=== PATIENT | male | born 1940 | race Caucasian/White ===

== ENCOUNTER 2019-06-03 18:58 | Inpatient (IN) | payer OTHER ==
[~2019-06-03] VITALS: Ht 185.4 cm; Wt 96.6 kg
[~2019-06-03 18:58] MED LIST: ALLER-EASE180 MG PO; BAYER CHEWABLE81 MG PO; CRESTOR10 MG PO; IBUPROFEN 600600 M1 PO; NORVASC5 MG PO; PRILOSEC 20 MG20 MG PO; TOPROL XL25 MG PO
[2019-06-03 18:59] VITALS: BP 148/67
[2019-06-03 20:15] LABS: ABSOLUTE NEUTROPHILS 5.4 thou/uL (1.4-8.2); BASOPHILS 0.7 % (0.0-2.0); EOSINOPHILS 2.2 % (0.0-3.0); HEMATOCRIT 42.7 % (42.0-52.0); HEMOGLOBIN 14.4 gm/dL (14.0-18.0); LYMPHOCYTES 18.9 % (24.0-44.0); MCH 31.4 pg (26.0-34.0); MCHC 33.7 g/dL (28.0-37.0); MCV 93.2 fL (80.0-100.0); MONOCYTES 8.9 % (1.0-8.0); PLATELET COUNT 209 thou/uL (150-400); POLYS 69.3 % (36.0-66.0); RBC 4.58 mil/uL (4.50-6.00); RDW 14.8 % (10.5-14.5); WBC 7.7 thou/uL (4.0-11.0)
[2019-06-03 20:24] LABS: CALCIUM 10.2 mg/dL (8.5-10.1); CREATININE 1.1 mg/dL (0.7-1.3); POTASSIUM 4.5 mmol/L (3.5-5.1)
[2019-06-03 21:04] VITALS: BP 146/57
[2019-06-03 21:30] VITALS: BP 144/77
[2019-06-04 03:47] VITALS: BP 112/67
--- NOTE | 2019-06-04 04:22 | NUR ---
Pt admitted from ER at 2130.A/OX4,oriented to the room and unit. Pt is able to pivot for transfers NWB to LLE,encouraged to use urinal at noc and doing so. Wound care/pictures of left great toe,area is bruised with blisters on some areas. C/o pain LOP 3/10 medicated with Ibuprofen per EMAR with relief reported. Also c/o insomnia,Melatonin ordered and administered,will monitor effectiveness.Fall safety education provided and reinforced. Pt resting with no distress with Left foot elevated on pillows will continue to monitor pt.
[2019-06-04 08:20] VITALS: BP 116/62
--- NOTE | 2019-06-04 13:22 | NUR ---
Nutrition: Consulted for wound. Admit with L great toe fracture with wound. Blisters documented on this foot as well. No weight hx dating back 4 yrs, but no weight loss or appetite concerns per pt. CBW 213# with BMI 28.2 kg/m2. He admits to a great appetite, eating balanced meals much of the time. Hx: HTN, GERD, high cholesterol. Educated on protein importance with wounds with goal to choose 1-2 sources per meal. Sources identified. Pt likes meats, milk, and does a lot of yogurt and peanut butter. Walked through meal by meal what would count as protein. Plans to add cottage cheese to dinner for additional protein. Per radiology x-ray, no evidence to suggest osteomyelitis. With nutrition education complete and good po intake, low nutrition risk.
--- NOTE | 2019-06-04 16:18 | NUR ---
PT ADMITTED RELATED TO LEFT GREAT TOE FX. CM REVIEWED CHART AND SPOKE WITH CARE TEAM. CM MET WITH PT AT BEDSIDE THIS DAY. PT IS A&O X4. CM ROLE INTRODCUED. PT INDICATED HE LIVES IN A HOUSE WITH HIS WITH 1 STEP TO ENTER AND A FULL FLIGHT OF STEPS TO SECOND STORY. 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 PT INIDCATED HE HAD HH SERVICES WHEN HE HAD HIS KNEES DONE BUT CAN'T RECALL PROVIDER. PT INDICATED HE HOPES TO DISCHARGE HOME TOMORROW HIS SPOUSE WAS JUST HOSPITILIZED ELSEWHERE. CM TO FOLLOW INDICATED WITH DC PLANNING.
[2019-06-04 16:25] VITALS: BP 129/59
[2019-06-04] MEDS ORDERED: GENTAMICIN 0.1%15 G2 TOP (16:51)
[2019-06-04 17:08] VITALS: BP 129/59
--- NOTE | 2019-06-04 19:25 | NUR ---
Assumed pt care this am, fal precautuions ins place. Seen by wound care team, no pain have been verbalied by the pt, vs stable. Wound care done, dressing and medication placed. DC orders were given. POC followed, diet and medication well tolerated. Instructions and prescriptions given to the pt. IV removed, pt is now dc.
--- NOTE | 2019-06-08 09:07 | HC ---
[facility] [place] [id number] CONSULTATION Name: GERARDO IRIZRARY Room #: 464-P [facility] IN M.R.#: [id number] Admission: 06/03/19 Attend Phys: Km Kearney MD Discharge: 06/04/19 Date of : 38 Report #: [id number] THIS REPORT FOR: //name// CC: Torrey Kearney DATE OF SERVICE: 06/04/2019 WOUND CARE CONSULTATION PERSONAL PHYSICIAN: Jamar Daley MD CHIEF COMPLAINT: Left great toe wound. HISTORY OF PRESENT ILLNESS: This is a 78-year-old white male who states approximately a week ago, he fell and injured his left great toe. The patient states he knows initially he had some bruising around the toe and then it started to swell and developed a blister. The patient went to urgent care, did an x-ray and confirmed that he had a fracture of the toe. The patient was placed in a walking shoe at that time. The patient, however, stated he started having continued swelling and then the blister ruptured, started to drain serosanguineous drainage. He then went to see Dr. Jamar Daley of Orthopedics, who at that point in time was concerned about possible underlying osteomyelitis and infection. He sent the patient to the hospital to be admitted for IV antibiotics and wound care with myself. The patient denies any other associated wounds that he could not heal on his own. The patient states he does have mild pain, worse with ambulation, better with rest and elevation. The patient describes the pain as a throbbing type pain without radiation. PAST MEDICAL HISTORY: Significant for hypertension, hypercholesterolemia. PAST SURGICAL HISTORY: Previous knee surgeries, previous shoulder surgeries. CURRENT MEDICATIONS: Multiple, I reviewed the patient's medication list. DRUG ALLERGIES: None. SOCIAL HISTORY: The patient does not smoke. Drinks alcohol socially. FAMILY HISTORY: Not pertinent to current medical condition. REVIEW OF SYSTEMS: CONSTITUTIONAL: The patient denies fevers or chills. NEUROLOGIC: The patient denies numbness, tingling in arms or legs. EYES: No complaints. ENT: No complaints. [facility] [address] [place] [address] CONSULTATION Name: GERARDO IRIZARRY Room #: 464-P [facility] IN M.R.#: [id number] Admission: 06/03/19 Attend Phys: Km Kearney MD Discharge: 06/04/19 Date of : 38 Report #: [id number] CARDIAC: The patient denies chest pain, palpitations, peripheral edema. RESPIRATORY: The patient denies shortness of breath, cough or wheezes. GASTROINTESTINAL: The patient denies nausea, vomiting or abdominal pain. GENITOURINARY: The patient denies urgency or frequency. MUSCULOSKELETAL: The patient has pain in his left great toe where the fracture is located. SKIN: There is a fracture blister on the left great toe. PHYSICAL EXAMINATION: VITAL SIGNS: Temperature 36.4, pulse 72, respirations 18, BP 129/59. GENERAL: This is an alert and oriented x 3, pleasant white male who is in absolutely no distress. HEENT: Normocephalic, atraumatic. Mucous membranes are moist. Pupils are round. Sclerae white. NECK: Supple, nontender. LUNGS: Clear. HEART: Regular, without murmur. ABDOMEN: Soft, nontender. EXTREMITIES: The patient moves all extremities without difficulty. Evaluation of left foot reveals 2+ dorsalis pedis, posterior tibial pulses. Left heel and foot are all without open ulcerations. Evaluation of left great toe reveals an open wound of the toe with denuded epithelial tissue underneath as healthy granulating tissue. The toe is slightly edematous and minimally tender. There is no obvious deformity to the toe itself. No other associated wounds noted on the rest of the foot itself. NEUROLOGIC: Cranial nerves 2-12 grossly intact. Motor and sensory are grossly intact. LABORATORY VALUES: Left lower extremity arterial Doppler shows no signs of any flow-limiting stenosis. White count 7.7, hemoglobin 14.4. C-reactive protein was 5.2. Chest x-ray of the left great toe shows no evidence of osteomyelitis. There is a nondisplaced fracture of the proximal phalanx of the proximal first digit. IMPRESSION: 1. Fracture blister, left great toe with early cellulitis. No signs of osteomyelitis. 2. Fracture, left great toe. 3. Hypertension. 4. Hypercholesterolemia. PLAN: At this time, the patient will be started on gentamicin topically, cover with Xeroform and gauze daily. We will follow the patient up in my clinic later next week. The patient will continue to wear a postop boot prescribed by Dr. Daley and follow back up with Dr. Daley for further orthopedic [address] [address] CONSULTATION Name: GERARDO IRIZARRY Room #: 464-P [facility] IN M.R.#: [id number] Admission: 06/03/19 Attend Phys: Km Kearney MD Discharge: 06/04/19 Date of : 38 Report #: [id number] evaluation. I appreciate the ability to consult. <ELECTRONICALLY SIGNED> By: Michael Leblanc MD 06/08/19 [id number] Michael Leblanc MD /nt
== END 2019-06-04 19:28 | disposition home or self-care (01) | DRG 563 ==
LOC: ER 18:58 → EROBS 20:40 → 4W 20:40
PROVIDERS: Emergency Medicine; ADMIT Internal Medicine
DX: S92.912A Unspecified fracture of left toe(s), initial encounter for closed fracture (principal); I10 Essential (primary) hypertension; E78.00 Pure hypercholesterolemia, unspecified; K21.9 Gastro-esophageal reflux disease without esophagitis; Z85.46 Personal history of malignant neoplasm of prostate; Z79.82 Long term (current) use of aspirin; Z79.899 Other long term (current) drug therapy; W18.39XA Other fall on same level, initial encounter; Y93.89 Activity, other specified; Y92.89 Other specified places as the place of occurrence of the external cause; Y99.8 Other external cause status
CPT/HCPCS: 10040

== ENCOUNTER → 2019-06-14 | Outpatient (CLI) | payer OTHER ==
[~2019-06-14] MED LIST changes: +GENTAMICIN 0.1%15 G2 TOP
== END ==
LOC: HYPER 07:11
DX: L97.521 Non-pressure chronic ulcer of other part of left foot limited to breakdown of skin (principal); I10 Essential (primary) hypertension; E78.00 Pure hypercholesterolemia, unspecified; K21.9 Gastro-esophageal reflux disease without esophagitis; R60.0 Localized edema; Z85.6 Personal history of leukemia; Z79.82 Long term (current) use of aspirin